=== PATIENT | male | born 1980 ===

== ENCOUNTER 2018-07-19 08:29 | Emergency (ER) | payer SELFPAY ==
[2018-07-19 08:39] VITALS: BP 121/79; PULSE 71; RESP 18; TEMP 98.2; O2SAT 99
[2018-07-19] MEDS ORDERED: Fluorescein 1 mg Ophthalmic Strip ONE (09:22)
--- NOTE | 2018-07-19 13:58 | C.PDOC ---
History Of Present Illness 37 y/o male presents to ED complaining of right eye pain since yesterday. He states that his eye has been tearing since then. He denies any vision changes, eye discharge, or any trauma. Unknown if patient got something in his eye. Patient has no other complaints at this time. Chief Complaint (Nursing): Eye Problem History Per: Patient History/Exam Limitations: no limitations Onset/Duration Of Symptoms: Days Current Symptoms Are (Timing): Still Present Injury To Eye?: No Associated Symptoms: denies: Decreased Vision, Discharge From Eye Past Medical History Reviewed: Historical Data, Nursing Documentation, Vital Signs Vital Signs: Last Vital Signs Temp 98.2 F 07/19/18 08:39 Pulse 71 07/19/18 08:39 Resp 18 07/19/18 08:39 BP 121/79 07/19/18 08:39 Pulse Ox 99 07/19/18 08:39 Family History: States: No Known Family Hx - Social History Hx Alcohol Use: Yes Hx Substance Use: No - Immunization History Hx Tetanus Toxoid Vaccination: No Hx Influenza Vaccination: Yes Hx Pneumococcal Vaccination: No Review Of Systems Except As Marked, All Systems Reviewed And Found Negative. Constitutional: Negative for: Fever, Chills Eyes: Positive for: Pain (Right eye). Negative for: Vision Change, Other (eye discharge) Gastrointestinal: Negative for: Nausea, Vomiting, Abdominal Pain Musculoskeletal: Negative for: Neck Pain Skin: Negative for: Rash Neurological: Negative for: Headache, Dizziness Physical Exam - Physical Exam Appears: Non-toxic, No Acute Distress Skin: Warm, Dry Head: Atraumatic Eye(s): right: Other (Injected), left: Normal Inspection Oral Mucosa: Moist Neck: Supple Cardiovascular: Rhythm Regular Respiratory: Normal Breath Sounds Extremity: Bilateral: Atraumatic, Normal ROM Neurological/Psych: Oriented x3, Normal Speech, Normal Cognition Gait: Steady ED Course And Treatment O2 Sat by Pulse Oximetry: 99 (RA) Pulse Ox Interpretation: Normal Medical Decision Making Medical Decision Making: Progress: Did fluorescein. Uptake at 6 o clock position on the sclera. Disposition - Disposition Referrals: Ed Escoto [Staff Provider] - Disposition: HOME/ ROUTINE Disposition Time: 09:25 Condition: GOOD Additional Instructions: THERESE HALL, thank you for letting us take care of you today. Your provider was Angelito Choi DO and you were treated for EYE PAIN. The emergency medical care you received today was directed at your acute symptoms. If you were prescribed any medication, please fill it and take as directed. It may take several days for your symptoms to resolve. Return to the Emergency Department if your symptoms worsen, do not improve, or if you have any other problems. Please contact your doctor or call one of the physicians/clinics you have been referred to that are listed on the Patient Visit Information form that is included in your discharge packet. Bring any paperwork you were given at discharge with you along with any medications you are taking to your follow up visit. Our treatment cannot replace ongoing medical care by a primary care provider outside of the emergency department. Thank you for allowing the [facility] team to be part of your care today. Follow up with the eye doctor in 1-2 days for re-evaluation and further management. THERESE HALL, alex por dejarnos cuidar de isa ingram. Lynne proveedor fue Angelito Choi DO y isa recibi tratamiento para el DOLOR DEL ALVARO. La atencin mdica de emergencia que recibi hoy se dirigi a geo sntomas agudos. Si le recetaron algn medicamento, llnelo y tmelo segn las indicaciones. Los sntomas pueden tardar varios fisher en resolverse. Regrese al Departamento de Emergencias si geo sntomas empeoran, no mejoran o si tiene otros problemas. Comunquese con lynne mdico o llame a jose de los mdicos / clnicas a los que pagan sido referido que figuran en el formulario de Informacin de visita al paciente que se incluye en lynne paquete de aidee. Lleve todos los documentos que recibi al momento del aidee junto con los medicamentos que est tomando para lynne visita de seguimiento. Nuestro tratamiento no puede reemplazar la atencin mdica continua por parte de un proveedor de atencin primaria fuera del departamento de emergencias. Alex por permitir que el equipo de [facility] sea parte de lynne atencin hoy. Lazaro un seguimiento con el oftalmlogo en 1 2 fisher para aditi reevaluacin y manejo adicional. Prescriptions: Polymyxin/Trimethoprim Sulfate [Polytrim Ophth Soln] 2 drop OD Q6 #1 bottle Instructions: Corneal Abrasion (DC) Forms: [employer] (Indonesian) Print Language: ICELANDIC - Clinical Impression Clinical Impression: Corneal abrasion - Scribe Statement The provider has reviewed the documentation as recorded by the Scribe Tabatha Noel Provider Attestation: All medical record entries made by the Scribe were at my direction and personally dictated by me. I have reviewed the chart and agree that the record accurately reflects my personal performance of the history, physical exam, medical decision making, and the department course for this patient. I have also personally directed, reviewed, and agree with the discharge instructions and disposition.
== END 2018-07-19 09:33 | disposition home or self-care (01) ==
LOC: C.ER 08:29
DX: S05.01XA Injury of conjunctiva and corneal abrasion without foreign body, right eye, initial encounter (principal); X58.XXXA Exposure to other specified factors, initial encounter